=== PATIENT | female | born 1950 | race Caucasian/White ===

== ENCOUNTER → 2017-02-28 | Day surgery (SDC) | payer MEDICARE, OTHER ==
[~2017-02-28] VITALS: Ht 172.7 cm; Wt 65.8 kg
[~2017-02-28] MED LIST: 0.9% Sodium Chloride 1,000 ML IV SCH; AMLO5TAB2 PO; ATEN50TA PO; CYCL10TA9 PO; DICY10CA56 PO; DOXE10CA PO; GLUC100016 PO; LEVO112C2 PO; MTC5T PO; OMEP20CA11 PO; PANT40TA2 PO; Sodium Chloride LOK Flush 10 mL Syringe IV PRN; UBID100C16 PO; VENL25TA4 PO; [UNRECOGNIZED DRUG - CODE] PO; fentaNYL-PF 50 mCg/mL 2 mL Inj IVPUSH PRN
[2017-02-28 14:11] VITALS: BP 124/77; PULSE 52; RESP 14; O2SAT 99
[2017-02-28 15:00] VITALS: BP 139/70; PULSE 49; RESP 14; O2SAT 96
[2017-02-28 15:13] VITALS: BP 133/71; PULSE 49; RESP 16; O2SAT 100
--- NOTE | 2017-02-28 15:19 | ENDO ---
[address] [address] ENDOSCOPY PROCEDURE PATIENT: JONNY SLAUGHTER : 1950 MR#: [id number] ADMIT: 02/28/2017 JOB ID: [id number] DATE OF SERVICE: 02/28/2017 TYPE OF OPERATION: Esophagogastroduodenoscopy with biopsy. PREOPERATIVE DIAGNOSIS(ES): Epigastric pain. 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 No anastomotic ulcers were seen. ANESTHESIA: Fentanyl 100 mcg, Versed 5 mg IV administered. COMPLICATIONS: None. BLOOD LOSS: Minimal DESCRIPTION OF PROCEDURE: After risks and benefits explained to the patient, informed consent was obtained. After anesthesia administered, upper endoscope was then inserted in the mouth, intubated into the gastric pouch, through the gastrojejunal anastomosis down to the jejunum and mucosa carefully examined. After procedure done, the scope withdrawn, procedure terminated. FINDINGS: Upon inspection of the esophagus, esophagus was normal without masses, ulcers, lesions. Z-line located at 40 cm from the incisors. There was a gastric pouch that was seen from prior Claudy-en-Y gastric bypass. Past the gastrojejunal anastomosis there appeared to be a blind limb of small bowel that was most likely from the patient's history of an elevated anastomotic leak that was redo. The scope was then advanced to the jejunum to the long limb which was normal. Biopsies taken of gastric pouch. 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 RECOMMENDATIONS: Await pathology results. Follow up in GI clinic as needed.
[2017-02-28 15:22] VITALS: BP 136/78; PULSE 50; RESP 16; O2SAT 100
--- NOTE | 2017-03-04 12:29 | PATH ---
SURGICAL PATHOLOGY Attending Physician:Chandler Chase MD CASE STATUS: Signed Out PATIENT NAME: JONNY SLAUGHTER PID: [id number] : 1950 DATE COLLECTED:02/28/2017 00:00 SPECIMEN: Gastric, Biopsy CLINICAL HISTORY: 1). GASTRIC POUCH BIOPSY FINAL DIAGNOSIS: Stomach, Pouch, Biopsy: Antral-type mucosa with no diagnostic abnormality. Negative for Helicobacter by immunohistochemistry. Negative for intestinal metaplasia. Negative for dysplasia and malignancy. ICD10: R10.9 GROSS DESCRIPTION: The specimen is received in one formalin filled container labeled with the patient's name, sublabeled "gastric pouch" and consists of 2 portions of tissue which aggregate to 0.4 x 0.2 x 0.1 CM. The specimen is entirely submitted in one cassette. 03/01/2017DC MICRO DESCRIPTION: An immunohistochemical stain was performed to evaluate for Helicobacter organisms and is negative. A control stain showed appropriate reactivity. * This test was developed and its performance characteristics determined by [facility]. It has not been cleared or approved by the U.S. Food and Drug Administration. The FDA has determined that such clearance or approval is not necessary. This test is used for clinical purposes. It should not be regarded as investigational or for research. ICD-9 CODES: CPT CODES: 1: 43206, 43447 Electronically Signed Out Yi Sanchez MD [facility] [address], [place] [address] Technical component performed at [facility], [address], [address]
== END | disposition home or self-care (01) ==
LOC: END 01:34
PROVIDERS: ATTEND Internal Medicine Gastroenterology
DX: R10.13 Epigastric pain (principal); I10 Essential (primary) hypertension; E78.00 Pure hypercholesterolemia, unspecified; M19.90 Unspecified osteoarthritis, unspecified site; Z86.010 Personal history of colon polyps; Z80.0 Family history of malignant neoplasm of digestive organs; Z98.84 Bariatric surgery status
CPT/HCPCS: 43239; G0500; J2250; J3010; J7030